=== PATIENT | male | born 1955 | race American Indian/Alaskan Native ===

== ENCOUNTER 2018-05-04 08:10 | Outpatient (CLI) | payer OTHER ==
--- NOTE | 2018-05-04 09:53 | Mammography Report ---
Bilateral diagnostic mammogram and sonogram upper outer left breast: No previous studies are available. CAD study utilized. Findings: Predominance of adipose tissue bilaterally with glandular tissue in the subareolar area. There is focal 1.2 x 0.5 cm density noted adjacent to the skin upper breast seen on the left MLO view approximately 5 cm from the nipple. There is focal density identified at the upper outer posterior left breast measuring 7 mm in diameter and may represent a mass or a focal glandular tissue. Normal axillae. No microcalcification. Sonographic examination reveals hyperechoic complex mass measuring 0.79 x 0.5 cm 1:00 o'clock position 5 cm from nipple deep to the skin palpable area. Impression: Suspicious lesion. Recommend biopsy. BI-RADS 4. BI-RADS CATEGORY: 4 = Suspicious ACR BI-RADS MAMMOGRAPHIC CODES: 0 = Needs additional imaging evaluation; 1 = Negative; 2 = Benign; 3 = Probably benign; 4 = Suspicious; 5 = Malignant; 6 = Known biopsy-proven malignancy COMMENT: 1. Dense breast tissue, i.e., adenosis, fibrocystic changes, etc., may obscure an underlying neoplasm. 2. Approximately 10% of cancers are not detected with mammography. 3. A negative mammography report should not delay biopsy if a clinically suspicious mass is present. COMMENT: Patient follow-up letters are generated in [employer].
== END 2018-05-04 08:11 | disposition home or self-care (01) ==
LOC: MAMMO 08:10
PROVIDERS: ATTEND Internal Medicine
DX: N63.20 Unspecified lump in the left breast, unspecified quadrant (principal)
CPT/HCPCS: 77066